=== PATIENT | female | born 1975 ===

== ENCOUNTER 2023-04-10 20:49 | Inpatient (IN) | payer MEDICAID ==
[2023-04-10] MEDS ORDERED: LORazepam 2 MG/ML INJ IM PRN (21:09)
[2023-04-10] MEDS ORDERED: haloperidoL 5 MG TAB PO PRN (21:09)
[2023-04-10] MEDS ORDERED: IBUPROFEN 600 MG TAB PO PRN (21:09)
[2023-04-10] MEDS ORDERED: HALOPERIDOL LACTATE 5 MG/ML 1 ML VIAL IM PRN (21:09)
[2023-04-10] MEDS ORDERED: MAGNESIUM HYDROXIDE 2,400 MG/30 ML CUP PO PRN (21:09)
[2023-04-10] MEDS ORDERED: LORazepam 1 MG TAB PO PRN (21:09)
[2023-04-10] MEDS ORDERED: MAG HYDROX/AL HYDROX/SIMETH 30 ML CUP PO PRN (21:09)
[2023-04-10] MEDS: TRIHEXYPHENIDYL 2 MG TAB PO SCH (22:48)
[2023-04-10] MEDS: NICOTINE GUM (POLACRILEX) 2 MG GUM BUCCAL PRN (23:32)
[2023-04-11 01:14] LABS: Appearance,Urine Clear (Clear); Bilirubin,Urine Negative (Negative); Blood,Urine Negative (Negative); Color,Urine Yellow; Glucose,Urine (UA) Negative (Negative); Ketones,Urine Trace (Negative); Protein,Urine Negative (Negative)
[2023-04-11 01:15] LABS: Leukocyte Esterase,Urine Negative (Negative); Nitrite,Urine Negative (Negative)
[2023-04-11 01:16] LABS: Amphetamine Screen,Urine Not Detected (NotDetected); Barbiturate Screen,Urine Not Detected (NotDetected); Benzodiazepines Screen,Urine Detected (NotDetected); Cocaine Screen,Urine Not Detected (NotDetected); Methadone Screen, Urine Not Detected (NotDetected); Opiate Screen,Urine Not Detected (NotDetected); Oxycodone Screen, Urine Not Detected (NotDetected); Phencyclidine Screen,Urine Not Detected (NotDetected); Tricyclic Antidepressant,Urine Not Detected (NotDetected); Urn Cannabinoid Scrn Detected (NotDetected)
[2023-04-11 01:28] LABS: RBC,Urine 0 /hpf (0-5); Squamous Epithelial Cell,Urine 4 /hpf (0-4)
[2023-04-11 01:29] LABS: WBC,Urine 5 /hpf (0-5)
--- NOTE | 2023-04-11 03:42 | P.PN ---
Progress Note - Text Progress Note Date: 04/11/23 psychotic and could not be evaluated at this time
[2023-04-11] MEDS: TRIHEXYPHENIDYL 2 MG TAB PO SCH ×3 (08:11→21:16)
[2023-04-11] MEDS: TOPIRAMATE 100 MG TAB PO SCH (08:12)
[2023-04-11] MEDS ORDERED: NICOTINE 14MG/24HR PATCH TRANSDERM SCH (09:00)
--- NOTE | 2023-04-11 11:56 | P.HP ---
Psychiatric H&P - . H&P Date: 04/11/23 History & Physical: Allergies Allergy/AdvReac Type Severity Reaction Status Date / Time No Known Allergies Allergy Verified 04/10/23 21:09 Vital Signs Temp 98.4 F 04/10/23 22:38 Pulse 96 04/10/23 22:38 Resp 18 04/10/23 22:38 BP 119/74 04/10/23 22:38 Pulse Ox 98 04/10/23 22:38 FiO2 Intake & Output 04/10/23 04/11/23 04/11/23 18:59 06:59 18:59 Weight 68.1 kg Laboratory Last Values Urine Color Yellow 04/10/23 23:55 Urine Appearance Clear (Clear) 04/10/23 23:55 Urine pH 7.0 (5.0-8.0) 04/10/23 23:55 Ur Specific [place] 1.010 (1.001-1.035) 04/10/23 23:55 Urine Protein Negative (Negative) 04/10/23 23:55 Urine Glucose (UA) Negative (Negative) 04/10/23 23:55 Urine Ketones Trace (Negative) 04/10/23 23:55 Urine Blood Negative (Negative) 04/10/23 23:55 Urine Nitrite Negative (Negative) 04/10/23 23:55 Urine Bilirubin Negative (Negative) 04/10/23 23:55 Urine Urobilinogen 2.0 mg/dL (<2.0) 04/10/23 23:55 Ur Leukocyte Esterase Negative (Negative) 04/10/23 23:55 Urine RBC 0 /hpf (0-5) 04/10/23 23:55 Urine WBC 5 /hpf (0-5) 04/10/23 23:55 Ur Squamous Epith Cells 4 /hpf (0-4) 04/10/23 23:55 Urine Bacteria NONE /hpf (None) 04/10/23 23:55 Urine Mucus NONE /hpf (None) 04/10/23 23:55 Urine HCG, Qual Not Detected (Not Detectd) 04/10/23 23:55 Urine Opiates Screen Not Detected (NotDetected) 04/10/23 23:55 Ur Oxycodone Screen Not Detected (NotDetected) 04/10/23 23:55 Urine Methadone Screen Not Detected (NotDetected) 04/10/23 23:55 Ur Propoxyphene Screen Not Detected (NotDetected) 04/10/23 23:55 Ur Barbiturates Screen Not Detected (NotDetected) 04/10/23 23:55 U Tricyclic Antidepress Not Detected (NotDetected) 04/10/23 23:55 Ur Phencyclidine Scrn Not Detected (NotDetected) 04/10/23 23:55 Ur Amphetamines Screen Not Detected (NotDetected) 04/10/23 23:55 U Methamphetamines Scrn Not Detected (NotDetected) 04/10/23 23:55 U Benzodiazepines Scrn Detected (NotDetected) H 04/10/23 23:55 Urine Cocaine Screen Not Detected (NotDetected) 04/10/23 23:55 U Marijuana (THC) Screen Detected (NotDetected) H 04/10/23 23:55 04/11/23 11:46 This is a psychiatric assessment on Viktoria Salguero who is a 47-year-old - [place] female who is currently hospitalized due to acute psychosis Patient has been a transfer from [facility] where she was initially seen in the ER Patient is a very poor historian and continues to repeat herself stating that her children and her ex Santacruz stating her identity to steal her money To says that they have been doing so for the last 10 years When asked as to what she's been doing prevented patient states that she can't do anything says that stating ID Patient response to the same comment'they were all stealing my identity'for any questions asked Further information could not be collected due to level reasons Past history personal and social history: Patient is unable to respond to any questions without going back to stating that they were stealing her identity However when I was screaming patient asked if she could continue to have her Prozac and her Topamax Mental status examination: General Appearance: Patient appears to be stated age is alert, directable, and attempts to cooperate. Patient appears to have slightly disheveled hygiene and grooming. Behavior: Patient was laying down without any agitated behavior. Normal psychomotor activity. Eye contact is appropriate. Speech: Patient's speech is fluent and nonpressured. Mood/Affect: Patient reports her mood is depressed, affect is congruent to t hought processes Suicidality/Homicidality: Patient denies suicidal ideation. She reports no intention or plan at this time. She denies any homicidal ideation, intention, and/or plan. Perceptions: Patient denies any visual hallucinations and denies any auditory hallucinations Though content/process: Remains projective and paranoid Thinking is delusional Memory and concentration: AOX3, grossly intact for the purposes of this session. Can spell "WORLD" backwards Judgment and insight: poor Psychotic disorder unspecified Rule out schizoaffective disorder STRENGTHS/WEAKNESSES: Strength is that the patient is resilient. INTELLECT: average PLAN: -Patient is admitted under voluntary status to MHU for stabilization of psychiatric symptoms and safety. Patient signed adult voluntary form and medication consent and is placed in patient's chart. -Medications : Will continue on Prolixin in 5 mg 3 times a day Topamax 200 mg daily as previously prescribed We'll hold the Prozac to minimize any antidepressant induced psychosis We'll also hold the Abilify due to its avid D2 binding which would make rest of the antipsychotics unable to exert their therapeutic effect and would be be a poor drug of choice for combination antipsychotics Haldol and Vistaril PRN for agitation/aggression -Patient was informed of the risks, benefits and side effects of the medication and patient verbally consented to taking the medications. Patient signed med consent form and was placed in chart. -Internal Medicine consult to perform medical evaluation and physical. -SW on board for discharge planning. Encourage patient to participate in groups to work on coping skills. Martinez Bangura M.D. 04/11/2023
[2023-04-11 13:16] LABS: Chol/HDL Ratio 2.65 Ratio
[2023-04-11] MEDS: NICOTINE GUM (POLACRILEX) 2 MG GUM BUCCAL PRN (13:48)
--- NOTE | 2023-04-12 02:57 | P.CONS ---
History of Present Illness - Reason for Consult Consult date: 04/12/23 - History of Present Illness The patient is a 47-year-old female with no known PMH who was admitted to the mental health unit due to paranoid behavior. The patient was seen and evaluated with the mental health unit RN present. Patient reports that her family members called the police and they were concerned that she wasn't acting right. She denied any physical complaints. She denied any past medical history. Denied tobacco, alcohol, or substance use. He denied experience chest discomfort or shortness of breath, fever, chills, cough, nausea, and, abdominal pain, diarrhea. Laboratory outpatient was reviewed with urine toxicology positive for marijuana and benzodiazepines Review of systems: Pertinent positives and negatives as discussed in HPI, a complete review of systems was performed and all other systems are negative. Physical examination: General: non toxic, no distress, appears at stated age, normal weight Derm: no unusual rashes/lesions, no unusual ecchymoses, warm, dry Head: atraumatic, normocephalic, symmetric Eyes: EOMI, no lid lag, anicteric sclera ENT: Nose and ears atraumatic, no thrush, no pharyngeal erythema Neck: trachea midline, supple Mouth: no lip lesion, mucus membranes moist Cardiovascular: S1S2 reg, no murmur, no edema Lungs: CTA bilateral, no rhonchi, no rales , no accessory muscle use Abdominal: soft, nontender to palpation, no guarding Ext: no gross muscle atrophy, no contractures, Neuro: No gross focal neuro deficits noted Psych: Alert, oriented, appropriate affect Assessment: Marijuana abuse Psychosis Imaging: None performed Data Review: Laboratory outpatient was reviewed with urine toxicology positive for marijuana and benzodiazepines Plan: Advised on the importance of cessation Defer management of psychosis to primary psychiatry service Thank you for allowing us to participate in the care of this patient. We will follow peripherally. Do not hesitate to contact us with questions. Someone can be reached from the [facility] hospitalist group at all hours of the day at [phone]. Past Medical History History of Any Multi-Drug Resistant Organisms: None Reported Additional Past Surgical History / Comment(s): Reports no medical history however poor historian Past Psychological History: PTSD Additional Psychological History / Comment(s): Unable to obtain a full history patient states does have PTSD and sees a psychiatrist, name unkown Smoking Status: Never smoker Past Alcohol Use History: None Reported Past Drug Use History: None Reported - Past Family History Father Family Medical History: Unable to Obtain (patient refused) Medications and Allergies Home Medications Medication Instructions Recorded Confirmed Type Topiramate [Topamax] 200 mg PO DAILY 04/10/23 04/10/23 History Trihexyphenidyl [Artane] 2 mg PO TID 04/10/23 04/10/23 History fluPHENAZine [Prolixin 5MG] 5 mg PO TID 04/10/23 04/10/23 History Allergies Allergy/AdvReac Type Severity Reaction Status Date / Time No Known Allergies Allergy Verified 04/10/23 21:09 Results Labs: Abnormal Lab Results - Last 24 Hours (Table) 04/11/23 Range/Units 08:32 Cholesterol 204.00 H (0.00-200.00) mg/dL HDL Cholesterol 77.00 H (40.00-60.00) mg/dL
[2023-04-12] MEDS: TRIHEXYPHENIDYL 2 MG TAB PO SCH ×3 (09:29→22:54)
[2023-04-12] MEDS: TOPIRAMATE 100 MG TAB PO SCH (09:29)
--- NOTE | 2023-04-12 10:10 | P.PN ---
Subjective Progress Note Date: 04/12/23 Principal diagnosis: Psychotic disorder unspecified Rule out schizoaffective disorder Patient Name: Patricia Mcqueen Date of : 73 Patient Status: Inpatient Subjective data: Patient was laying in her bed and did not seem to be in any acute distress Patient was easily aroused and stated that she wants her Prozac to be restarted When discussed about her psychosis patient states that I do not know her and that I only talk to her 1 time and that there is no way she is going to believe any information that I give her She said that she wants her Prozac restarted and that's that She denies that she has any other issues or problems She says that her ID is being stolen by everyone and that's where the problem is Mental status examination: General Appearance: Patient appears to be stated age is alert, directable, and attempts to cooperate. Patient appears to have slightly disheveled hygiene and grooming. Behavior: Patient was laying down without any agitated behavior. Normal psychomotor activity. Eye contact is appropriate. Speech: Patient's speech is fluent and nonpressured. Mood/Affect: Patient reports her mood is depressed, affect is congruent to thought processes Suicidality/Homicidality: Patient denies suicidal ideation. She reports no intention or plan at this time. She denies any homicidal ideation, intention, and/or plan. Perceptions: Patient denies any visual hallucinations and denies any auditory h allucinations Though content/process: Remains projective and paranoid Thinking is delusional Memory and concentration: AOX3, grossly intact for the purposes of this session. Can spell "WORLD" backwards Judgment and insight: poor Psychotic disorder unspecified Rule out schizoaffective disorder STRENGTHS/WEAKNESSES: Strength is that the patient is resilient. INTELLECT: average PLAN: -Patient is admitted under voluntary status to MHU for stabilization of psychiatric symptoms and safety. Patient signed adult voluntary form and medication consent and is placed in patient's chart. -Medications : Will continue on Prolixin in 5 mg 3 times a day Topamax 200 mg daily as previously prescribed We will restart the Prozac but at 20 mg a day and monitor closely We'll also hold the Abilify due to its avid D2 binding which would make rest of the antipsychotics unable to exert their therapeutic effect and would be be a poor drug of choice for combination antipsychotics Haldol and Vistaril PRN for agitation/aggression -Patient was informed of the risks, benefits and side effects of the medication and patient verbally consented to taking the medications. Patient signed med consent form and was placed in chart. -Internal Medicine consult to perform medical evaluation and physical. -SW on board for discharge planning. Encourage patient to participate in groups to work on coping skills. Martinez Bangura M.D. 04/12/2023 Objective - Vital Signs Vital signs: Vital Signs Temp 97.9 F 04/12/23 07:00 Pulse 68 04/12/23 07:00 Resp 18 04/12/23 07:00 BP 92/52 04/12/23 07:00 Pulse Ox 98 04/12/23 07:00 FiO2 - Labs Labs: Abnormal Lab Results - Last 24 Hours (Table) 04/11/23 Range/Units 08:32 Cholesterol 204.00 H (0.00-200.00) mg/dL HDL Cholesterol 77.00 H (40.00-60.00) mg/dL
[2023-04-12] MEDS: NICOTINE GUM (POLACRILEX) 2 MG GUM BUCCAL PRN ×2 (18:24→22:53)
[2023-04-12] MEDS: diphenhydrAMINE 25 MG CAP PO PRN (22:52)
[2023-04-13] MEDS: TOPIRAMATE 100 MG TAB PO SCH (08:31)
[2023-04-13] MEDS: FLUoxetine HCL 20 MG CAP PO SCH (08:31)
[2023-04-13] MEDS: TRIHEXYPHENIDYL 2 MG TAB PO SCH ×3 (08:31→21:43)
[2023-04-13] MEDS: NICOTINE GUM (POLACRILEX) 2 MG GUM BUCCAL PRN ×2 (11:14→18:38)
--- NOTE | 2023-04-13 11:35 | P.PN ---
Progress Note - Text Progress Note Date: 04/13/23 Interval History: Patient was seen resting in bed and was directable and agreeable to speak with scientific writer in her room., The patient is alert and oriented to person, place, and time. She is not reporting any suicidal or homicidal ideation, intention, and/or plan. She is not reporting any auditory or visual hallucinations. However, the patient maintains that her and daughter have been trying to steal her identity. The patient becomes irritable and guarded when discussing the reasons for her admission. This provider attempts to bring up the petition which described "Alexander Lock, paranoid and calling police at home thinking she is being stabbed her hearing gunshots." The patient however does not wish to discuss this. The patient reports that she follows with [facility] in [place] and the like to continue with her outpatient treatment. She is otherwise not reporting any acute issues or concerns to this provider. She remains primarily as noted herself in her room. This provider discussed long-acting injectable medication however she appears to be disinterested at this time. Mental Status Exam: General Appearance: Patient appears to be stated age is alert, directable, and cooperative. Behavior: Patient is calmly lying down in bed without any agitated behavior. Intense eye contact. Speech: Patient's speech is fluent and nonpressured. Mood/Affect: Mood is "I'm doing fine," affect is irritable and suspicious. Suicidality/Homicidality: Patient reports no suicidal or homicidal ideation. Perceptions: Patient denies any visual hallucinations and denies any auditory hallucinations Though content/process: Patient endorses significant paranoia. Memory and concentration: AOX3, grossly intact for the purposes of this session Judgment and insight: Very poor Vital Signs Temp 97.9 F 04/12/23 07:00 Pulse 68 04/12/23 07:00 Resp 18 04/12/23 07:00 BP 92/52 04/12/23 07:00 Pulse Ox 98 04/12/23 07:00 FiO2 Assessment Psychosis, unspecified Rule out schizoaffective disorder Nicotine dependence Plan: -Patient continues to meet criteria for inpatient psychiatric admission for symptom stabilization and safety. Patient has signed adult voluntary form and medication consent and was placed in patient's chart. -Medications: Continue Prolixin 5 mg by mouth 3 times a day for psychosis Continue Prozac 20 mg by mouth daily for depression/anxiety Continue Topamax 200 mg by mouth daily Continue Artane 2 mg by mouth 3 times a day Consider augmentation with Depakote or Lamictal. -When necessary Ativan and Haldol for agitation/aggression. -NRT - nicotine gum -SW on board for discharge planning. Encouraged the patient to participate in milieu.
[2023-04-14] MEDS: TOPIRAMATE 100 MG TAB PO SCH (08:59)
[2023-04-14] MEDS: FLUoxetine HCL 20 MG CAP PO SCH (08:59)
[2023-04-14] MEDS: TRIHEXYPHENIDYL 2 MG TAB PO SCH (09:00)
[2023-04-14] MEDS: NICOTINE GUM (POLACRILEX) 2 MG GUM BUCCAL PRN ×2 (09:00→13:34)
[2023-04-14] MEDS ORDERED: diphenhydrAMINE 25 MG CAP PO PRN (09:26)
[2023-04-14] MEDS: diphenhydrAMINE 25 MG CAP PO PRN (12:02)
--- NOTE | 2023-04-14 12:36 | P.PN ---
Progress Note - Text Progress Note Date: 04/14/23 Interval History: Patient was seen wandering the hallways and was agreeable to speak at the account underwriter in the office. Currently, the patient is not reporting any suicidal or homicidal ideation, intention, and/or plan. She is not reporting any auditory or visual hallucinations. She only endorses concerns that her daughter has been attempting to steal her identity. She is not expressing any overt delusional thought content or any other delusional themes. She has been adherent with her medication and is not reporting any significant side effects. This provider also discussed with her outpatient psychiatric provider regarding her current treatment regimen. The patient has a history of nonadherence with treatment and has missed 5 of her last outpatient psychiatric appointments. She does have significant history of schizoaffective disorder and traumatic brain injury. The outpatient treatment team is recommending long-acting injectable medication. The patient is not agreeable at this time. She otherwise reports no issues regarding her sleep or appetite. She denies any medical issues or concerns. Mental Status Exam: General Appearance: Patient appears to be stated age is alert, directable, and cooperative. Behavior: Patient is calmly lying down in bed without any agitated behavior. Fair eye contact. Speech: Patient's speech is fluent and nonpressured. Mood/Affect: Mood is "I'm feeling better," affect is friendly and polite. Suicidality/Homicidality: Patient reports no suicidal or homicidal ideation. Perceptions: Patient denies any visual hallucinations and denies any auditory hallucinations Though content/process: Patient reports paranoia towards her daughter. No other delusional thought content endorse. Linear and logical in short conversation. Memory and concentration: AOX3, grossly intact for the purposes of this session Judgment and insight: Mildly improving Vital Signs Temp 97.8 F 04/14/23 06:57 Pulse 62 04/14/23 06:57 Resp 17 04/14/23 06:57 BP 81/51 04/14/23 06:57 Pulse Ox 99 04/14/23 06:57 FiO2 Assessment Psychosis, unspecified Rule out schizoaffective disorder Nicotine dependence Plan: -Patient continues to meet criteria for inpatient psychiatric admission for symptom stabilization and safety. Patient has signed adult voluntary form and medication consent and was placed in patient's chart. -Medications: Decrease Prolixin to 5 mg by mouth twice a day - concern for hypotension Continue Prozac 20 mg by mouth daily for depression/anxiety Continue Topamax 200 mg by mouth daily Discontinue Artane Consider augmentation with Depakote or Lamictal. -When necessary Ativan and Haldol for agitation/aggression. -NRT - nicotine gum -SW on board for discharge planning. Encouraged the patient to participate in milieu.
[2023-04-15] MEDS: TOPIRAMATE 100 MG TAB PO SCH (09:14)
[2023-04-15] MEDS: FLUoxetine HCL 20 MG CAP PO SCH (09:15)
[2023-04-15 09:16] VITALS: TEMP 97.9
[2023-04-15] MEDS ORDERED: fluPHENAZine DECANOATE 25 MG/ML 5ML MDV IM ONE (09:36)
[2023-04-15] MEDS: diphenhydrAMINE 50 MG CAP PO PRN ×2 (10:01→16:40)
--- NOTE | 2023-04-15 11:06 | P.PN ---
Progress Note - Text Progress Note Date: 04/15/23 Interval History: Patient was seen wandering the hallways and was agreeable to speak at the handbook writer in the office. Currently, the patient is not reporting any suicidal or homicidal ideation, intention, and/or plan. She is not reporting any auditory or visual hallucinations. She is not forthcoming with any delusional thought content today. She is agreeable to transitioning to Prolixin Decanoate today and stopping the oral medication. She reports no issues regarding sleep or appetite. She reports no medical issues or concerns aside from post-nasal drip which she manages with benadryl. Mental Status Exam: General Appearance: Patient appears to be stated age is alert, directable, and cooperative. Behavior: Patient is calmly lying down in bed without any agitated behavior. Fair eye contact. Speech: Patient's speech is fluent and nonpressured. Mood/Affect: Mood is "I'm feeling well," affect is friendly and polite. Suicidality/Homicidality: Patient reports no suicidal or homicidal ideation. Perceptions: Patient denies any visual hallucinations and denies any auditory hallucinations Though content/process: Patient does not report any overt paranoid or delusional thought content. Linear and logical in short conversation. Memory and concentration: AOX3, grossly intact for the purposes of this session Judgment and insight: Mildly improving Vital Signs Temp 97.9 F 04/15/23 09:15 Pulse 91 04/15/23 09:15 Resp 16 04/15/23 09:15 BP 99/64 04/15/23 09:15 Pulse Ox 99 04/14/23 06:57 FiO2 Assessment Schizoaffective disorder, bipolar type as per history Nicotine dependence Plan: -Patient continues to meet criteria for inpatient psychiatric admission for symptom stabilization and safety. Patient has signed adult voluntary form and medication consent and was placed in patient's chart. -Medications: Discontinue Prolixin oral medication. Administer Prolixin decanoate 25 mg IM Continue Prozac 20 mg by mouth daily for depression/anxiety Continue Topamax 200 mg by mouth daily -When necessary Ativan and Haldol for agitation/aggression. -NRT - nicotine gum -SW on board for discharge planning. Encouraged the patient to participate in milieu.
[2023-04-15] MEDS: NICOTINE GUM (POLACRILEX) 2 MG GUM BUCCAL PRN ×2 (12:05→16:25)
[2023-04-15] MEDS ORDERED: ACETAMINOPHEN TAB 325 MG TAB PO PRN (20:27)
[2023-04-16] MEDS: FLUoxetine HCL 20 MG CAP PO SCH (09:08)
[2023-04-16] MEDS: NICOTINE GUM (POLACRILEX) 2 MG GUM BUCCAL PRN (09:09)
[2023-04-16] MEDS: TOPIRAMATE 100 MG TAB PO SCH (09:09)
[2023-04-16] MEDS: diphenhydrAMINE 50 MG CAP PO PRN (11:41)
[2023-04-16 11:42] VITALS: BP 108/69; PULSE 79; RESP 20
--- NOTE | 2023-04-16 13:09 | P.DS ---
Providers Date of admission: 04/10/23 22:34 Expected date of discharge: 04/16/23 Attending physician: Malvin Burdick MD Consults: 04/10/23 21:09 Consult Physician Routine Consulting Provider: Maria G Chilel Consult Reason/Comments: H&P for mental health admission Do you want consulting provider notified?: Yes Primary care physician: Physician Nonstaff - Discharge Diagnosis(es) (1) Schizoaffective disorder, bipolar type Current Visit: Yes Status: Acute Priority: High (2) Cannabis abuse Current Visit: Yes Status: Chronic Priority: Medium (3) Nicotine dependence Current Visit: Yes Status: Chronic Priority: Medium Hospital Course: Admission HPI: Initial psychiatric evaluation was completed by Dr. Bangura who wrote: This is a psychiatric assessment on Patricia Mcqueen who is a 47-year-old -[place] female who is currently hospitalized due to acute psychosis Patient has been a transfer from [place] where she was initially seen in the ER Patient is a very poor historian and continues to repeat herself stating that her children and her ex Santacruz stating her identity to steal her money To says that they have been doing so for the last 10 years When asked as to what she's been doing prevented patient states that she can't do anything says that stating ID Patient response to the same comment'they were all stealing my identity'for any questions asked Further information could not be collected due to level reasons Past history personal and social history: Patient is unable to respond to any questions without going back to stating that they were stealing her identity However when I was screaming patient asked if she could continue to have her Prozac and her Topamax Hospital course: Upon admission to the unit patient was initially noted to present as disheveled, paranoid, and irritable. Patient was however directable and agreeable to commence treatment. Patient got along well with other patients on the unit and followed unit protocol. Patient was compliant with the medications and denied any side effects throughout hospital course. Patient was started on Topamax, and Prolixin for management of schizoaffective disorder. Patient spoke of her stressors and engaged in therapy both group and individual. Patient was also seen by medical team for history and physical exam. Coordination of care to place with the patient's outpatient psychiatric provider with [facility] in [place]. It was determined that the patient has been nonadherent with her medications and with her outpatient appointments. Their recommendation was that the patient be placed on a long-acting injectable medication. Over the course the hospital station, the patient's medications were gradually titrated. She displayed a significant improvement in regards her target symptoms of psychosis and became much more linear, logical, and future oriented. She participated well in groups and was calm and directable with staff. She tolerated her medications well and reported no significant side effects. She is agreeable to transitioning to Prolixin Decanoate 5 mg IM on 04/15/2023. On the day of discharge, the patient is not reporting any suicidal or homicidal ideation, intention, and/or plan. She is not reporting any auditory or visual hallucinations. She is not reporting any paranoia or other delusions. She has been adherent with her medication is not reporting any significant side effects. The patient remains future and goal oriented. She was counseled at great length on the points of medication adherence and appropriate outpatient follow-up. The patient does have a significant history of substance abuse and was counseled at great length on abstaining from all substances including alcohol, tobacco, marijuana, and all illicit drugs. Mental status exam: General Appearance: Patient appears to be stated age is alert, pleasant, and cooperative. Patient is in no acute distress and has fair hygiene and grooming Behavior: Patient is calmly seated without any agitated behavior. Speech: Patient's speech is fluent and nonpressured. Mood/Affect: Patient reports their mood is "much better", affect is congruent and euthymic to bright. Suicidality/Homicidality: Patient reports no suicidal or homicidal ideation, intention, and/or plan. Perceptions: Patient denies any auditory or visual hallucinations. Though content/process: There is no evidence of any delusional thought content and thought process is linear and goal-directed. The patient is future and goal oriented. Memory and concentration: AOX3, grossly intact for the purposes of this session. Can spell "WORLD" backwards correctly. Judgment and insight: Improved with guarded prognosis Impression: Schizoaffective disorder, bipolar type Nicotine dependence Cannabis abuse Plan: -Continue with discharge today as patient has improved and stabilized psychiatrically and is not currently an imminent threat to herself and/or others. Remain at chronically elevated risk due to the severity of her mental illness, chronicity of her mental illness, and her history of nonadherence with treatment. -Continue medications: Prolixin Decanoate 25 mg IM was administered on 04/15/2023. Next dose due on her 05/13/2023. Prozac 40 mg by mouth daily for depression/anxiety Topamax 200 mg by mouth daily for seizure disorder and off label for mood Benadryl 50 mg by mouth 3 times a day when necessary for seasonal allergies -Patient was counseled on the need for medication compliance and appropriate follow-up at mental health and also primary care for medical issues. Patient verbalized understanding and agreed. -Social work to arrange for and conduct family meeting to ensure safety upon discharge and answer any questions/concerns. Social work also to arrange for patients follow up appointments with [facility] for psychiatric care along with follow up with primary care provider. -Patient counseled on abstaining from recreational drugs and marijuana and alcohol. Was informed/educated on the adverse effects on their physical and ment al health. Patient verbally agreed and understood. -Patient was instructed to return to the hospital or seek immediate medical care if their psychiatric or medical symptoms do worsen or reoccur. -Psychoeducation and supportive therapy provided to patient. Risks and benefits of pharmacological treatment versus the risks and benefits of nontreatment weighed and discussed. Informed consent discussion held. Common side effects of psychotropics discussed such as, but not limited to headache, GI disturbance, sexual dysfunction, movement disorders, sedation, and orthostatic hypotension. Life threatening and blackbox warnings of prescribed medications also discussed. Potential risks of operating a vehicle or heavy machinery discussed with patient at length. Advised on importance of compliance and a reliable and responsible manner. Patient advised to review FDA consumer labeling of all medications prior to taking. Patient verbalized understanding of potential risks, and agrees with current treatment plan. Patient advised to medically contact physician/emergency personnel if any acute changes in condition occur. Vital Signs Temp 97.9 F 04/15/23 09:15 Pulse 79 04/16/23 11:41 Resp 20 04/16/23 11:41 BP 108/69 04/16/23 11:41 Pulse Ox 99 04/14/23 06:57 FiO2 Laboratory Results Estimated Ave Glu mg/dL 91 mg/dL 04/11/23 08:32 Hemoglobin A1c 4.8 % (<=6.0) 04/11/23 08:32 Triglycerides 85.00 mg/dL (0.00-149.00) 04/11/23 08:32 Cholesterol 204.00 mg/dL (0.00-200.00) H 04/11/23 08:32 LDL Cholesterol, Calc 110.0 mg/dL (0.0-131.0) 04/11/23 08:32 VLDL Cholesterol, Calc 17.00 mg/dL (5.00-40.00) 04/11/23 08:32 HDL Cholesterol 77.00 mg/dL (40.00-60.00) H 04/11/23 08:32 Cholesterol/HDL Ratio 2.65 Ratio 04/11/23 08:32 Urine Color Yellow 04/10/23 23:55 Urine Appearance Clear (Clear) 04/10/23 23:55 Urine pH 7.0 (5.0-8.0) 04/10/23 23:55 Ur Specific [place] 1.010 (1.001-1.035) 04/10/23 23:55 Urine Protein Negative (Negative) 04/10/23 23:55 Urine Glucose (UA) Negative (Negative) 04/10/23 23:55 Urine Ketones Trace (Negative) 04/10/23 23:55 Urine Blood Negative (Negative) 04/10/23 23:55 Urine Nitrite Negative (Negative) 04/10/23 23:55 Urine Bilirubin Negative (Negative) 04/10/23 23:55 Urine Urobilinogen 2.0 mg/dL (<2.0) 04/10/23 23:55 Ur Leukocyte Esterase Negative (Negative) 04/10/23 23:55 Urine RBC 0 /hpf (0-5) 04/10/23 23:55 Urine WBC 5 /hpf (0-5) 04/10/23 23:55 Ur Squamous Epith Cells 4 /hpf (0-4) 04/10/23 23:55 Urine Bacteria NONE /hpf (None) 04/10/23 23:55 Urine Mucus NONE /hpf (None) 04/10/23 23:55 Urine HCG, Qual Not Detected (Not Detectd) 04/10/23 23:55 Urine Opiates Screen Not Detected (NotDetected) 04/10/23 23:55 Ur Oxycodone Screen Not Detected (NotDetected) 04/10/23 23:55 Urine Methadone Screen Not Detected (NotDetected) 04/10/23 23:55 Ur Propoxyphene Screen Not Detected (NotDetected) 04/10/23 23:55 Ur Barbiturates Screen Not Detected (NotDetected) 04/10/23 23:55 U Tricyclic Antidepress Not Detected (NotDetected) 04/10/23 23:55 Ur Phencyclidine Scrn Not Detected (NotDetected) 04/10/23 23:55 Ur Amphetamines Screen Not Detected (NotDetected) 04/10/23 23:55 U Methamphetamines Scrn Not Detected (NotDetected) 04/10/23 23:55 U Benzodiazepines Scrn Detected (NotDetected) H 04/10/23 23:55 Urine Cocaine Screen Not Detected (NotDetected) 04/10/23 23:55 U Marijuana (THC) Screen Detected (NotDetected) H 04/10/23 23:55 Allergies Allergy/AdvReac Type Severity Reaction Status Date / Time No Known Allergies Allergy Verified 04/10/23 21:09 Patient Condition at Discharge: Stable Plan - Discharge Summary Discharge Rx Participant: Yes New Discharge Prescriptions: New diphenhydrAMINE [Benadryl] 50 mg PO TID PRN 30 Days #90 cap PRN Reason: Allergies FLUoxetine HCL [PROzac] 40 mg PO DAILY 30 Days #60 cap fluPHENAZine decanoate [Prolixin Decanoate] 25 mg IM QMONTHLY 1 Days #1 ml Continue Topiramate [Topamax] 200 mg PO DAILY 30 Days #30 tab Discontinued fluPHENAZine [Prolixin 5MG] 5 mg PO TID Trihexyphenidyl [Artane] 2 mg PO TID Discharge Medication List FLUoxetine HCL [PROzac] 40 mg PO DAILY 30 Days #60 cap 04/16/23 [Rx] Topiramate [Topamax] 200 mg PO DAILY 30 Days #30 tab 04/16/23 [Rx] diphenhydrAMINE [Benadryl] 50 mg PO TID PRN 30 Days #90 cap 04/16/23 [Rx] fluPHENAZine decanoate [Prolixin Decanoate] 25 mg IM QMONTHLY 1 Days #1 ml 04/16/23 [Rx] Follow up Appointment(s)/Referral(s): Arlene WAN [Other] - 08/07/23 11:00 am (with Gena Castillo) Discharge Disposition: HOME SELF-CARE
== END 2023-04-16 14:35 | disposition home or self-care (01) | DRG 750 ==
LOC: 3MHU 22:34
PROVIDERS: ADMIT Psychiatry & Neurology Psychiatry; ATTEND Psychiatry & Neurology Psychiatry
DX: F25.0 Schizoaffective disorder, bipolar type (principal); F12.10 Cannabis abuse, uncomplicated; F17.210 Nicotine dependence, cigarettes, uncomplicated; F19.10 Other psychoactive substance abuse, uncomplicated; Z71.51 Drug abuse counseling and surveillance of drug abuser; F43.10 Post-traumatic stress disorder, unspecified; Z28.21 Immunization not carried out because of patient refusal; Z79.899 Other long term (current) drug therapy; G40.909 Epilepsy, unspecified, not intractable, without status epilepticus; R09.82 Postnasal drip
CPT/HCPCS: 80061; 80306; 81003; 81025; 83036